=== PATIENT | male | born 1990 | race Caucasian/White ===

== ENCOUNTER 2020-05-31 09:58 | Outpatient (CLI) | payer BC, SELFPAY ==
[2020-05-31 10:35] LABS: Basophils Absolute Auto 0.1 K/mm3 (0.0-0.1); Basophils Percent Auto 1.3 % (0.2-1.2); Eosinophils Absolute Auto 0.3 K/mm3 (0-0.3); Eosinophils Percent Auto 3.9 % (0-4.4); Hematocrit 43.3 % (42.0-52.0); Hemoglobin 14.7 g/dL (14.0-18.0); Immature Granulocyte Absolute 0.01 K/mm3 (0.00-0.031); Immature Granulocyte Percent A 0.1 % (0-0.5); Lymphocytes Absolute Auto 3.12 K/mm3 (0.9-3.2); Lymphocytes Percent Auto 41.5 % (18.3-44.2); Mean Corpuscular HGB Conc 33.9 g/dl (32-36); Mean Corpuscular Hemoglobin 29.7 pg (26-34); Mean Corpuscular Volume 87.5 fl (80-100); Mean Platelet Volume 9.9 fl (7.4-10.4); Monocytes Absolute Auto 0.6 K/mm3 (0.1-0.6); Monocytes Percent Auto 8.5 % (2.6-8.5); Neutrophils Absolute Auto 3.4 K/mm3 (1.3-6.7); Neutrophils Percent Auto 44.7 % (45.5-73.1); Platelet Count Result 296 k/mm3 (150-375); Red Blood Count 4.95 M/mm3 (4.6-6.20); Red Cell Distribution Width 12.6 % (11.5-14.5); White Blood Count 7.5 K/mm3 (4.5-10.0)
[2020-05-31 10:47] LABS: Alanine Aminotransferase 16 U/L (4-50); Albumin Level 4.3 g/dL (3.5-5.1); Alkaline Phosphatase 76 U/L (38-126); Anion Gap 6 mmol/L (8-16); Aspartate Amino Transferase 25 U/L (17-59); Bilirubin,Total 0.6 mg/dL (0.2-1.3); Blood Urea Nitrogen 14 mg/dL (9-20); Calcium 9.3 mg/dL (8.4-10.2); Carbon Dioxide 28 mmol/L (22-30); Chloride 107 mmol/L (98-107); Cholesterol 227 mg/dL (0-200); Estimated Glomerular Filt Rate > 60; Glucose 90 mg/dL (75-110); HDL Direct 35 mg/dL; Sodium 141 mmol/L (137-145); Triglycerides 121 mg/dL (<150)
[2020-05-31 10:58] LABS: LDL Cholesterol Direct 151 mg/dL
[2020-05-31 11:26] LABS: Free T4 Free Thyroxine 1.09 ng/mL (0.78-2.19)
[2020-06-06 11:45] LABS: Vitamin D 1,25 (OH)2 Total 23 pg/mL (18-72); Vitamin D2 1,25 (OH)2 <8 pg/mL; Vitamin D3 1,25 (OH)2 23 pg/mL
== END 2020-05-31 09:59 | disposition home or self-care (01) ==
DX: Z00.00 Encounter for general adult medical examination without abnormal findings (principal); F41.9 Anxiety disorder, unspecified; E55.9 Vitamin D deficiency, unspecified
CPT/HCPCS: 36415; 80053; 80061; 82652; 84439; 84443; 85025

== ENCOUNTER → 2020-06-13 11:12 | Outpatient (CLI) | payer BC, SELFPAY ==
--- NOTE | ~2020-06-13 | XR_ITS ---
EXAMINATION: XR shoulder RT min 2V DATE: 06/13/2020 11:26 INDICATION: Chronic right shoulder pain TECHNIQUE: AP internally and externally rotated, AP oblique externally rotated and axillary views of the right shoulder were obtained. COMPARISON: None FINDINGS: Normal alignment. No fracture. Glenohumeral joint is normal. Acromioclavicular joint is normal. Soft tissues are unremarkable. Visualized portions of the lungs are clear. IMPRESSION: Negative right shoulder radiographs. Reviewed, dictated and finalized at location B.
== END ==
DX: M25.511 Pain in right shoulder (principal); G89.29 Other chronic pain
CPT/HCPCS: 73030

== ENCOUNTER 2020-08-20 16:30 | Emergency (ER) | payer BC, SELFPAY ==
--- NOTE | ~2020-08-20 | CT_ITS ---
EXAMINATION: CT facial & cervical spine wo DATE: 08/20/2020 17:19 INDICATION: Trauma to the left face and head. TECHNIQUE: Computed tomography (CT) of the maxillofacial region and cervical spine was performed with out intravenous contrast. The dose-length product was 538.96 mGy-cm. Automated exposure control and i terative reconstruction technique were employed. COMPARISON: None FINDINGS: MAXILLOFACIAL CT: No acute facial fracture. The orbits, mandible, maxilla, zygomatic arches and pterygoid plates are in tact. There is mucosal thickening of the paranasal sinuses, consistent with sinusitis. Mastoids are p neumatized. Temporal mandibular joints are symmetric. CERVICAL SPINE CT: Normal cervical alignment. Mild levocurvature of the cervical spine. No evidence for perched facet. O dontoid process within normal limits. Lung apices are normal. No significant paraspinal soft tissue a bnormality. IMPRESSION: 1. No acute abnormality of the facial bones or cervical spine. Reviewed, dictated and finalized at location A.
--- NOTE | ~2020-08-20 | CT_ITS ---
EXAMINATION: CT BRAIN W/O DATE: 08/20/2020 17:18 INDICATION: Trauma to the left face and head TECHNIQUE: Computed tomography (CT) of the head was performed without intravenous contrast. The dose- length product was 605.33 mGy-cm. Automated exposure control and iterative reconstruction technique w ere employed. COMPARISON: No prior studies for comparison. FINDINGS: Normal brain parenchymal volume for age. Normal de santiago-white differentiation. No acute intrac ranial hemorrhage, infarction, mass or mass effect. No ventriculomegaly or midline shift. Midline sagittal images demonstrate a normal corpus callosum, c raniovertebral junction and sella turcica. Basilar cisterns are patent. There is mucosal thickening of the ethmoid and left maxillary sinuses. Mastoids are pneumatized. No d epressed skull fractures. IMPRESSION: 1. No acute intracranial abnormality. 2: Mild sinus disease. Reviewed, dictated and finalized at location A.
--- NOTE | 2020-08-20 17:09 | ED.WOUNDLAC ---
HPI - Wound/Laceration General Chief Complaint: Wound/Laceration Stated Complaint: Laceration Time Seen by Provider: 08/20/20 16:51 Source: patient Mode of arrival: ambulatory Limitations: no limitations History of Present Illness HPI narrative: Patient is a 30-year-old male who presents with laceration through helix of ear, abrasion and hematoma to forehead from a blade off of a brush hog. He reports injury while working. He denies LOC, reports tenderness to left jaw and headache. He has hematoma and abrasion to left forehead. Laceration to ear, bleeding controlled at this time. Patient is up to date with tetanus. Patient refusing IV or IM pain medication at this time as he reports a fear of needles. Family at bedside. Related Data Allergies Allergy/AdvReac Type Severity Reaction Status Date / Time No Known Allergies Allergy Unverified 12/24/13 13:53 Review of Systems Review of Systems: Narrative: CONSTITUTIONAL: Denies fever, chills, or sweats. EYES: Denies visual changes, redness, or discharge. ENT: Denies rhinorrhea, congestion, sore throat, or otalgia. CARDIOVASCULAR: Denies chest pain, palpitations, or edema. RESPIRATORY: Denies cough or dyspnea. GASTROINTESTINAL: Denies abdominal pain, nausea, vomiting, or diarrhea. GENITOURINARY: Denies dysuria or hematuria. SKIN: Laceration the left ear, hematoma and abrasion to left forehead MUSCULOSKELETAL: Denies back pain, joint pain, or myalgia. NEUROLOGIC: Denies headache, numbness, dizziness, or weakness. PSYCHIATRIC: Denies anxiety or depression. [facility] Social History Social History (Updated 08/20/20 @ 17:12 by PEDRO LUIS Sandoval) Smoking status: Never smoker Alcohol intake: never Substance use: never Living arrangements: with family Occupation/Education: occupation Comments At the time of signature, I have reviewed and agree with nursing past medical, surgical, social, and family history unless otherwise noted. Please see nursing chart for further information. There is no relevant family history pertinent to the presenting complaint. Exam Narrative: Exam Narrative: GENERAL: Well-appearing, well-nourished, and in no acute distress. HEAD: Normocephalic, atraumatic. EYES: EOMI. No redness or drainage. Conjunctiva are normal. ENT: Mucous membranes pink and moist. Nares clear. No rhinorrhea. TMs normal bilaterally. Throat normal. Uvula midline. NECK: AROM. Supple. No lymphadenopathy. CHEST: No respiratory distress. Clear to auscultation. HEART: Regular rate and rhythm. No murmur appreciated. Normal peripheral pulses. EXTREMITIES: Normal range of motion. No edema. SKIN: Laceration through helix and antihelix of left ear, abrasion to left forehead NEURO: No focal deficits. Alert and oriented x3. Gait steady. PSYCH: Normal affect. No signs of depression or anxiety. Course Consultations Consultation #1: Dr. Lao, ENT in repairing laceration to left ear at this time. Vital Signs Vital signs: Vital Signs Temperature 37.1 C 08/20/20 17:26 Pulse Rate 83 08/20/20 17:26 Respiratory Rate 16 08/20/20 17:26 Blood Pressure 123/77 08/20/20 17:26 Pulse Oximetry 100 08/20/20 17:26 Temperature 37.1 C 08/20/20 17:26 Pulse Rate 83 08/20/20 17:26 Respiratory Rate 16 08/20/20 17:26 Blood Pressure 123/77 08/20/20 17:26 Pulse Oximetry 100 08/20/20 17:26 MDM - Wound/Laceration MDM Narrative Medical decision making narrative: Patient's tetanus up to date, no abnormalities noted per CT scan. Ear repaired and dressed by Dr. Lao. Patient to follow up with Dr. Lao as directed. Differential Diagnosis Differential diagnosis: Likely laceration, abrasion and avulsion of skin Imaging Data Radiologist's impression: ITS Impressions Head CT 08/20/20 17:23 IMPRESSION: 1. No acute intracranial abnormality. 2: Mild sinus disease. Head/Cervical Spine/Facial Bones CT 08/20/20 17:27 IMPRESSION: 1. No acute abnormality
[2020-08-20 17:26] VITALS: BP 123/77; PULSE 83; RESP 16; TEMP 37.1; O2SAT 100
--- NOTE | 2020-08-20 18:37 | WPDCN ---
Assessment and Plan Assessment and plan (1) Laceration of ear, external, left: Code(s): S01.312A - Laceration without foreign body of left ear, initial encounter Status: Acute Assessment and Plan: Cipro for one week po, keep dry for three days, do not soak for one week, bid triple abx ointment for one week, ok to remove sutures after one week, follow up with any questions/concerns. 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 Consulted for repair. Review of Systems Constitutional: Constitutional: Denies fatigue, Denies fever(s) and Denies lethargy Eyes: Eyes: Denies blurry vision and Denies change in vision ENT: Reports as per HPI Cardiovascular: Cardiovascular: Denies chest pain Respiratory: Respiratory: Denies cough Endocrine: Endocrine: Denies fatigue Hematologic/Lymphatic: Hematologic/Lymphatic: Denies easy bleeding, Denies easy bruising and Denies lymphadenopathy Allergic/Immunologic: Allergic/Immunologic: Denies seasonal rhinorrhea [facility] Social History Social History (Updated 08/20/20 @ 17:12 by PEDRO LUIS Sandoval) Smoking status: Never smoker Alcohol intake: never Substance use: never Living arrangements: with family Occupation/Education: occupation Meds Home Medications and Allergies Home Medications Medication Instructions Recorded Confirmed Type ciprofloxacin HCl [Cipro] 500 mg PO Q12H 7 Days #14 tablet 08/20/20 Rx Allergies Allergy/AdvReac Type Severity Reaction Status Date / Time No Known Allergies Allergy Unverified 12/24/13 13:53 Vital Signs Vital Signs - 24 hr 08/20/20 17:26 Temperature 37.1 C Pulse Rate 83 Respiratory Rate 16 Blood Pressure 123/77 Pulse Oximetry 100 Exam Const: General: cooperative, healthy appearing, comfortable, well developed and alert HENMT: Head: normal to inspection, normocephalic and atraumatic Ears: hearing grossly normal bilaterally, external ears abnormal (Right normal see below for left), TM's normal bilaterally and EAC's normal General nose exam: Normal external nose present, Normal nares present, No nasal polyps present, Normal nasal mucous membranes and turbinates present and Normal septum present Face and sinus: normal facial exam Mouth: Yes Normal oral and palatal mucosa present, Yes lip normal, Yes tongue normal, Yes oropharynx normal and Yes moist mucous membranes Teeth and gingiva: dentition normal and gingiva normal Throat: posterior oropharynx normal, tonsils normal and uvula midline Other: Right external ear laceration through tragus and helical cartilage. Repaired, see repair note. Eyes: General: appearance normal, both eyes and all related structures Periorbital: periorbital findings normal Eyelids: eyelids normal Conjunctivae: conjunctivae normal Sclera: sclerae normal Neck: Neck: normal visual inspection, full ROM and no lymphadenopathy Thyroid: thyroid normal Lymphatic: no lymphadenopathy noted Resp: Effort & Inspection: normal respiratory effort and able to speak in complete sentences Cardio: Jugular venous distension: no JVD Neuro: Cranial nerves: Yes CN's II-XII intact bilaterally
--- NOTE | 2020-08-20 18:41 | WPDPROCEDUR ---
Procedures Laceration Ear: Site: other (left ear) Side (if applicable): left Size (cm): 3 Description: linear Depth: [id number] Anesthetic used: with epi Anesthesia technique: local infiltration Pre-repair: wound explored, irrigated and irrigated extensively Wound copiously irrigated. 3cm linear laceration through tragal cartilage (through and through) and anterior skin and through helical cartilage (posterior skin intact). Local given. Consent verbally obtained prior. Cartilage approximated with 4-0 vicryl, deep layers approximated with 4-0 vicryl, skin closed with 5-0 chromic and 5-0 fast.
== END 2020-08-20 18:50 | disposition home or self-care (01) ==
PROVIDERS: Emergency Provider Nurse Practitioner
DX: S01.312A Laceration without foreign body of left ear, initial encounter (principal); J32.9 Chronic sinusitis, unspecified; W30.89XA Contact with other specified agricultural machinery, initial encounter
CPT/HCPCS: 12052; 13152; 70450; 70486; 72125; 99284

== ENCOUNTER → 2020-12-10 03:18 | Outpatient (CLI) | payer BC, SELFPAY ==
[2020-12-10 20:46] LABS: SARS-CoV-2 RNA PCR Negative
== END ==
PROVIDERS: Visit Provider Otolaryngology
DX: Z01.812 Encounter for preprocedural laboratory examination (principal); Z20.822 Contact with and (suspected) exposure to COVID-19
CPT/HCPCS: C9803; U0003; U0005

== ENCOUNTER 2020-12-13 02:36 | Day surgery (SDC) | payer BC, SELFPAY ==
[2020-12-05 11:14] VITALS: BMI 29.5
--- NOTE | 2020-12-12 08:46 | PM.IMHP ---
H&P: HPI History of Present Illness Date/Time: 12/12/20 08:46 Chief Complaint: Nasal polyps nasal congestion nasal obstruction chronic sinusitis septal deviation inferior turbinate hypertrophy Narrative: patient presents for planned surgical procedures. No change in symptoms no change in medical history. Review of Systems Constitutional: Constitutional: Denies fatigue, Denies fever(s) and Denies lethargy Eyes: Eyes: Denies blurry vision and Denies change in vision ENT: Reports as per HPI Cardiovascular: Cardiovascular: Denies chest pain Respiratory: Respiratory: Denies cough Endocrine: Endocrine: Denies fatigue Hematologic/Lymphatic: Hematologic/Lymphatic: Denies easy bleeding, Denies easy bruising and Denies lymphadenopathy Allergic/Immunologic: Allergic/Immunologic: Denies seasonal rhinorrhea [facility] Past Medical History Medical History (Updated 12/12/20 @ 08:49 by John Lao MD) Anxiety Asthma Family History Family History (Updated 09/19/20 @ 15:23 by Aixa Farooq MA) Mother Asthma Hypertension Heart disease Social History Social History Smoking status: Never smoker Alcohol intake: current Substance use: never Spiritual care concerns: No Meds Home Medications and Allergies Home Medications Medication Instructions Recorded Confirmed Type fluticasone propionate 50 2 spray INTRANASAL BID #16 ml 09/19/20 12/05/20 Rx mcg/actuation nasal spray,suspension azelastine 137 mcg (0.1 %) nasal 1 spray INTRANASAL Q12H #30 ml 10/24/20 12/05/20 Rx spray aerosol alprazolam 0.5 mg PO TID PRN 12/05/20 12/05/20 History sertraline 50 mg PO HS 12/05/20 12/05/20 History Allergies Allergy/AdvReac Type Severity Reaction Status Date / Time No Known Allergies Allergy Unverified 12/05/20 11:06 Exam Const: General: cooperative, healthy appearing, comfortable, well developed and alert HENMT: Head: normal to inspection, normocephalic and atraumatic Ears: hearing grossly normal bilaterally, external ears normal, TM's normal bilaterally and EAC's normal General nose exam: Normal external nose present, Normal nares present and Other nasal findings present ( Left-sided polyps septal deviation and inferior turbinates hypertrophied) Face and sinus: normal facial exam Mouth: Yes Normal oral and palatal mucosa present, Yes lip normal, Yes tongue normal, Yes oropharynx normal and Yes moist mucous membranes Teeth and gingiva: dentition normal and gingiva normal Throat: posterior oropharynx normal, tonsils normal and uvula midline Eyes: General: appearance normal, both eyes and all related structures Periorbital: periorbital findings normal Eyelids: eyelids normal Conjunctivae: conjunctivae normal Sclera: sclerae normal Neck: Neck: normal visual inspection, full ROM and no lymphadenopathy Thyroid: thyroid normal Lymphatic: no lymphadenopathy noted Resp: Effort & Inspection: normal respiratory effort and able to speak in complete sentences Cardio: Jugular venous distension: no JVD Neuro: Cranial nerves: Yes CN's II-XII intact bilaterally Assessment and Plan Assessment and plan (1) Nasal polyps: Code(s): J33.9 - Nasal polyp, unspecified Status: Acute Assessment and Plan: plan is for the OR for image guided bilateral maxillary antrostomies anterior ethmoidectomies endoscopic assisted septoplasty inferior turbinate submucosal resection with outfracture and left-sided polypectomy the polyps are present. Patient voiced understanding of these risks bleeding infection need for postoperative pain medicine need for postoperative antibiotics postoperative splint placement postoperative pain blindness damage to vision brain damage CSF leak postoperative bleeding. Total operative time approximately 1.5 hours. Image guidance required. (2) History of postnasal drip: Code(s): Z87.898 - Personal history of othe
--- NOTE | 2020-12-12 12:15 | WPDANESEPPF ---
Anes - Initial Pre Proc Eval Procedure: Operation Date: 12/13/20 10:00 Proposed Procedures p Septoplasty - John Lao MD s Image Guided Bilateral Maxillary Antrostomy, Anterior Ethmoidectomy, Bilateral Inferior Turbinectomy, Left Polypectomy, - John Lao MD Date/Time: 12/12/20 12:15 Surgeon: John Lao MD Pre Op Diagnosis: chronic sinusitis Patient Data Age: 30 Gender: M Height: 1.78 m Weight: 93.2 kg Allergies Allergy/AdvReac Type Severity Reaction Status Date / Time No Known Allergies Allergy Unverified 12/13/20 08:57 Home Medications Medication Instructions Recorded Confirmed Type fluticasone propionate 50 2 spray INTRANASAL BID #16 ml 09/19/20 12/05/20 Rx mcg/actuation nasal spray,suspension azelastine 137 mcg (0.1 %) nasal 1 spray INTRANASAL Q12H #30 ml 10/24/20 12/05/20 Rx spray aerosol alprazolam 0.5 mg PO TID PRN 12/05/20 12/05/20 History sertraline 50 mg PO HS 12/05/20 12/05/20 History Patient hx anesthesia problems: none Family hx anesthesia problems: none [facility] Past Medical History Medical History (Updated 12/12/20 @ 08:49 by John Lao MD) Anxiety Asthma Family History Family History (Updated 09/19/20 @ 15:23 by Aixa Farooq MA) Mother Asthma Hypertension Heart disease Social History Social History Smoking status: Never smoker Alcohol intake: never Substance use: never Living arrangements: with family Spiritual care concerns: No Anes - Eval Final PreProcedure Day of Procedure 12/12/20 12:15 Patient weight: overweight Heart: regular rate and rhythm Lungs: clear to auscultation and normal air movement Airway: Mallampati scale class 1 Neurological: alert and oriented Last oral intake: >/= 8 hours ASA classification: II Emergent: no Anesthetic plan: proceed Anesthesia type and monitoring: general ETT and standard monitoring Informed Consent: The patient's anesthetic plan and its attendant risks and benefits were discussed with the patient/family/POA. Questions were solicited and answers provided to the satisfaction of the patient/family/POA.
[2020-12-13] VITALS (11 sets, daily range): BP systolic 109–150; BP diastolic 70–88; PULSE 53–79; RESP 7–20; TEMP 36.6; O2SAT 99–100
--- NOTE | 2020-12-13 07:09 | WPDHPUPDATE1 ---
History and Physical Update Update Date/Time: 12/13/20 07:09 History and Physical has been reviewed, including an updated exam of the patient. There are NO changes in the patient's condition. Risks, benefits, and alternatives have been discussed and questions answered. Patient agrees to proceed with procedure.
[2020-12-13] MEDS: LACTATED RINGERS 1,000 ML 30 ML IV CONT ×2 (09:00→12:10)
[2020-12-13] MEDS: ACETAMINOPHEN 500 MG TABLET 1000 MG PO (09:08)
[2020-12-13] MEDS: ceFAZolin 2 GM/D5W 50 ML 2 GM/50 ML BAG IVPB (09:34)
[2020-12-13] MEDS: OXYMETAZOLINE HCL 0.05% NAS 15 ML BTL (*BKC) 1 SPRAY NASAL (09:48)
[2020-12-13] MEDS: LIDO 1%/EPINEPHRINE 1:100,000 50 ML VIAL 14 ML INFILTRATE (11:32)
--- NOTE | 2020-12-13 11:54 | P.OP_ITS ---
Procedure Note - Detailed Date of Procedure 12/13/20 Pre-op Diagnosis chronic sinusitis, facial pressure, facial pain, septal deviation, inferior turbinate hypertrophy, nasal obstruction, nasal congestion Post-op Diagnosis same Procedure Performed 1. Endoscopic assisted septoplasty 2. Bilateral inferior turbinate submucosal resection with outfracture 3. Bilateral image guided maxillary antrostomies 4. Bilateral image guided anterior ethmoidectomies 5. Left-sided polypectomy Surgeon John Lao MD Anesthesia general Indications See above Findings Moderately disease sinonasal passages left much worse than right with polypoid changes this was biopsied to ensure nothing more sinister. Septal deviation corrected inferior turn it did turbinate hypertrophy also corrected Description of Procedure The patient was correctly identified and consent was verified in the preoperative holding area. The patient was then brought to the operating room time was performed. General anesthesia was induced and endotracheal tube was secured the patient's airway and taped to the left lower lip. Patient was then prepped and draped for the aforementioned procedures. Second time-out performed. Afrin-soaked pledgets were inserted into the bilateral nasal passages and allowed to sit for 5 minutes. There were then removed. Image guidance initiated. 0 degree endoscope utilized to view the bilateral nasal passages with the aforementioned findings noted. 14 cc of 1% lidocaine with 1 100,000 parts epinephrine was then injected into the septum and anterior heads of the inferior turbinates. Junior incision made on the left side this was dissected posteriorly with a combination of 7 [place] suction and caudal elevator septal crust over the 15 blade. Right mucoperichondrial flap elevated of note there was an anterior perforation which was later closed. Deviated septum removed. Inferior turbinates reduced in the submucosal plane bilaterally and outfractured using a [place] elevator the mulberry tips posteriorly were cauterized with Bovie suction electrocautery at a setting of 10. The polypoid tissue in the left middle meatus was biopsied and sent for pathology. Double ball tip probe utilized thick create maxillary antrostomies bilaterally maxillary antrostomies were completed with combination of backbiter and straight through cut. Microdebrider utilized along with Kerrison to remove redundant addendum is edematous tissue, polypoid tissue on the left, Kerrison and micro debrider were utilized to perform an anterior ethmoidectomy. Orbits were not violated. Skull base was not violated. This was confirmed with image guidance. Bleeding was controlled using the intermittent application of Afrin-soaked pledgets bilaterally. Seun incision the right-sided perforation was closed with 1 interrupted 5 0 fast gut suture. Small pieces of a piece of cartilage was reimplanted in the left-sided Universal incision was closed with 4 interrupted 5 0 fast gut sutures. The cartilage was kept in its desired position using a mattressed 5 0 fast gut suture. Mcgraw splints placed bilaterally following suction of the bilateral nasal passages to the posterior choana. These Mcgraw splints were sutured anteriorly using a 3-0 nylon suture. Hemostasis was excellent. Total blood loss 5 cc. Care the patient was turned over to Anesthesiology. I performed all dictated portions of the procedure. Estimated Blood Loss 10 Drains No Packing No Pathology yes Complications No immediate complications Condition stable Disposition PACU
== END 2020-12-13 13:41 | disposition home or self-care (01) ==
PROVIDERS: PCP Internal Medicine; Visit Provider Otolaryngology
PROC: (CPT 30520; principal; 2020-12-13 10:00)
PROC: (CPT 30140; 2020-12-13 10:00)
DX: J32.9 Chronic sinusitis, unspecified (principal); J34.2 Deviated nasal septum; J34.3 Hypertrophy of nasal turbinates; J34.89 Other specified disorders of nose and nasal sinuses; R09.81 Nasal congestion; J33.8 Other polyp of sinus; J45.909 Unspecified asthma, uncomplicated; F41.9 Anxiety disorder, unspecified
CPT/HCPCS: 30140; 31256; 31254; 61782; 30520; 88304; 88305; A9270; J0330; J0690; J1100; J2250; J2405; J2704; J3010; J7120